=== PATIENT | male | born 1985 | race African-American/Black ===

== ENCOUNTER 2016-10-20 11:26 | Emergency (ER) | payer OTHER ==
[~2016-10-20] VITALS: Ht 172.7 cm; Wt 65.8 kg
[~2016-10-20 11:26] MED LIST: AMOXICILLIN500 MG ORAL; BENADRYL25 MG ORAL; BLEPH-105 ML OP; MOTRIN IB200 MG ORAL; NAPHCON-A EYE D15 ML RIGHT EYE; NKM
[2016-10-20 11:40] VITALS: BP 143/87
[2016-10-20] MEDS ORDERED: Albuterol ud Inhalation HHN ONE (11:45)
[2016-10-20] MEDS ORDERED: Ipratropium 0.02% Inh Soln 2.5ml UD HHN ONE (11:45)
--- NOTE | 2016-10-20 12:20 | Emergency Room Report ---
History of Present Illness General Chief Complaint: Upper Respiratory Illness Source: Patient Present Illness HPI Patient present with complaints of increased asthma exacerbation reports that he is out of his albuterol inhaler and is having difficulty catching his breath denies any fevers he has a low baseline cough Denies any production Denies any chest pain or pleurisy Denies any recent travel Denies any swelling His discomfort is rated as 5/10 Denies any other neck pain or photophobia Allergies: Coded Allergies: No Known Allergies (Unverified , 10/11/15) Patient History Past Medical History: see triage record Pertinent Family History: none Reviewed Nursing Documentation: PMH: Agreed, PSxH: Agreed Nursing Documentation-PMH Past Medical History: No History, Except For Hx Asthma: Yes Review of Systems All Other Systems: negative except mentioned in HPI Physical Exam Vital Signs Date Time Temp Pulse Resp B/P (MAP) Pulse Ox O2 Delivery O2 Flow Rate FiO2 10/20/16 11:30 98.1 97 18 142/92 94 Room Air 10/20/16 11:54 21 Sp02 EP Interpretation: reviewed, normal General Appearance: mild distress - appears mildly short of breath Head: normocephalic, atraumatic Eyes: bilateral eye PERRL, bilateral eye EOMI ENT: hearing grossly normal, normal pharynx, TMs + canals normal, uvula midline Neck: full range of motion, supple, no meningismus, no bony tend Respiratory: no rhonchi, no respiratory distress, no retraction, no accessory muscle use, wheezing - bilaterally Cardiovascular #1: normal peripheral pulses, regular rate, rhythm, no edema, no gallop, no JVD, no murmur Gastrointestinal: normal bowel sounds, non tender, soft, no mass, no organomegaly, non-distended, no guarding, no hernia, no pulsatile mass, no rebound Genitourinary: no CVA tenderness Musculoskeletal: normal inspection Neurologic: oriented x3, responsive, cut out machine operator III-XII nml as tested, motor strength/ tone normal, sensory intact Psychiatric: mood/affect normal Skin: normal color, no rash, warm/dry, palpation normal Lymphatic: normal inspection, no adenopathy Medical Decision Making Diagnostic Impression: Primary Impression: Acute asthma exacerbation ER Course Multiple differentials including but not limited to pneumonia, upper respiratory infection, asthma exacerbation entertained Patient lung sounds on reexamination are significantly improved and patient feels better as well At this time patient was written a prescription for his albuterol I will also place him on steroids for a few days and he requires close outpatient followup Rhythm Strip Diag. Results EP Interpretation: yes Rate: 78 Rhythm: NSR, no PVC's, no ectopy Last Vital Signs Date Time Temp Pulse Resp B/P (MAP) Pulse Ox O2 Delivery O2 Flow Rate FiO2 10/20/16 11:54 83 16 Room Air 10/20/16 11:54 98 21 10/20/16 11:40 143/87 10/20/16 11:30 98.1 Status: improved Disposition: HOME, SELF-CARE Condition: Improved Scripts Prednisone* (PREDNISONE*) 20 Mg Tablet 20 MG ORAL DAILY, #8 TAB Prov: NESTOR IRVING D.O. 10/20/16 Albuterol Sulfate* (ALBUTEROL SULFATE MDI*) 8.5 Gm Hfa.aer.ad 2 PUFF INH Q6H, #2 EA 0 Refills Prov: NESTOR IRVING D.O. 10/20/16 Referrals: [facility],REFERRING (PCP) Additional Instructions: Patient is provided with the discharge instructions notified to follow up with primary doctor in the next 2-3 days otherwise return to the er with any worsening symptoms. Please note that this report is being documented using [employer] technology. This can lead to erroneous entry secondary to incorrect interpretation by the dictating instrument. NESTOR IRVING D.O. Oct 20, 2016 12:20
[2016-10-20] MEDS ORDERED: PREDNISONE20 MG ORAL (13:02)
[2016-10-20] MEDS ORDERED: ALBUTEROL SULF8.5 GM INH (13:02)
[2016-10-20 13:15] VITALS: BP 116/68
== END 2016-10-20 13:43 | disposition home or self-care (01) ==
LOC: EMR 11:42
DX: J45.901 Unspecified asthma with (acute) exacerbation (principal)
CPT/HCPCS: 94640; 94664; 99284

== ENCOUNTER 2017-02-14 21:32 | Emergency (ER) | payer OTHER ==
[~2017-02-14] VITALS: Ht 172.7 cm; Wt 67.1 kg
[~2017-02-14 21:32] MED LIST changes: +ALBUTEROL SULF8.5 GM INH; +PREDNISONE20 MG ORAL
[2017-02-14 22:00] VITALS: BP 130/76
[2017-02-14] MEDS ORDERED: Ipratropium 0.02% Inh Soln 2.5ml UD HHN ONE (22:00)
[2017-02-14] MEDS ORDERED: Albuterol ud Inhalation HHN ONE (22:00)
[2017-02-14] MEDS ORDERED: COMPACT COMPRE1 EACH MC (22:02)
[2017-02-14] MEDS ORDERED: ALBUTEROL2.5 MG/3 M HHN (22:02)
--- NOTE | 2017-02-14 22:16 | Emergency Room Report ---
History of Present Illness General Chief Complaint: Asthma Source: Patient Present Illness HPI 31-year-old male with history of asthma, p/w SOB for 2 days. SOB occurs both at rest and on exertion. no cough. Denies chest pain. Patient has been using albuterol inhaler every 8 hours. Patient does not have nebulizer at home. No recent steroid use. Pt states that this episode is similar to other episodes of asthma exacerbation. Denies fever, chills. Denies sick contacts or recent travel. Patient denies history of ICU admissions, intubations, or usage of BIPAP for asthma. Allergies: Coded Allergies: No Known Allergies (Unverified , 10/11/15) Patient History Past Medical History: see triage record Past Surgical History: none Pertinent Family History: none Reviewed Nursing Documentation: PMH: Agreed, PSxH: Agreed Nursing Documentation-PMH Hx Asthma: Yes Review of Systems All Other Systems: negative except mentioned in HPI Physical Exam Vital Signs Date Time Temp Pulse Resp B/P (MAP) Pulse Ox O2 Delivery O2 Flow Rate FiO2 02/14/17 21:45 98.4 75 16 130/76 98 Room Air 02/14/17 22:13 21 Sp02 EP Interpretation: reviewed, normal General Appearance: normal inspection, well appearing, no apparent distress, alert, GCS 15, non-toxic, other - not in resp distress Head: normocephalic, atraumatic Eyes: bilateral eye normal inspection, bilateral eye PERRL, bilateral eye EOMI ENT: normal ENT inspection, normal pharynx, normal voice, moist mucus membranes Neck: normal inspection, full range of motion, supple Respiratory: no respiratory distress, no retraction, speaking full sentences, other - very minimal exp wheezing, chest symmetrical Cardiovascular #1: normal inspection, regular rate, rhythm, normal capillary refill Cardiovascular #2: 2+ radial (R), 2+ radial (L) Gastrointestinal: normal inspection, non tender, soft, non-distended, no guarding Genitourinary: no CVA tenderness Musculoskeletal: normal inspection, back normal, normal range of motion, non- tender Neurologic: normal inspection, alert, oriented x3, responsive, motor strength/ tone normal, sensory intact, normal gait, speech normal Psychiatric: normal inspection, judgement/insight normal, memory normal Skin: normal inspection, normal color, no rash, warm/dry, well hydrated, normal turgor Medical Decision Making Diagnostic Impression: Primary Impression: Asthma ER Course 31-year-old male with history of asthma p/w SOB DDX: Asthma exacerbation, upper respiratory infection/viral syndrome Plan: Combivent nebulizer treatment x 1 Patient with extremely minimal wheezing, we'll give Decadron x1 ER Course: Patient has been treated with combivent x 3, antibiotics. Patient states improvement of symptoms. Patient continues to speak in complete sentences and is not in respiratory distress. No wheezing Disposition: Patient will be discharged to home with albuterol nebulizer Strict precautions are discussed with patient on when to emergently return to the ED including: persistent or worsening SOB, chest pain, fever, chills, which could indicate severe illness. Patient verbalized understanding. Patient is to follow up with her/his PMD within 5 days. Patient agrees with plan. Please note that this Emergency Department Report was dictated using [employer]comreinforcing bar setter technology software, occasionally this can lead to erroneous entry secondary to interpretation by the dictation equipment. Last Vital Signs Date Time Temp Pulse Resp B/P (MAP) Pulse Ox O2 Delivery O2 Flow Rate FiO2 02/14/17 22:13 21 02/14/17 22:13 75 16 98 Room Air 02/14/17 21:45 98.4 130/76 Disposition: HOME, SELF-CARE Condition: Improved Scripts Albuterol Sulfate* (ALBUTEROL SULFATE HHN*) 2.5 Mg/3 Ml Vial.neb 2.5 MG HHN Q4H Y for Shortness of Breath, #25 VIAL 0 Refills Prov: Grace Ferguson M.D. 02/14/17 Nebulizer (Compact Compressor Nebulizer) 1 Each Each [facility], #1 0 Refills Prov: Grace Ferguson M.D. 02/14/17 Patient Instructions: Asthma, Adult Grace Ferguson M.D. Feb 14, 2017 22:16
[2017-02-14 22:30] VITALS: BP 130/76
[2017-02-14] MEDS ORDERED: Dexamethasone 4mg/ml vial IM ONE (22:30)
== END 2017-02-14 22:30 | disposition home or self-care (01) ==
LOC: EMR 22:04
DX: J45.909 Unspecified asthma, uncomplicated (principal)
CPT/HCPCS: 94640; 94664; 96372; 99283; J1100

== ENCOUNTER 2018-01-25 13:38 | Emergency (ER) | payer OTHER ==
[~2018-01-25] VITALS: Ht 172.7 cm; Wt 85.3 kg
[~2018-01-25 13:38] MED LIST changes: +ALBUTEROL2.5 MG/3 M HHN; +COMPACT COMPRE1 EACH MC
[2018-01-25] MEDS ORDERED: Albuterol/Ipratropium 3ml neb HHN ONE (14:15)
--- NOTE | 2018-01-25 14:18 | Emergency Room Report ---
History of Present Illness General Chief Complaint: Flu Like Symptoms Source: Patient Present Illness HPI 32-year-old male patient presents the ER complaining of flulike symptoms and asthma for the past 2 days. Patient reports difficulty breathing. Denies cough. Reports history of asthma, states this been using his inhaler without relief of symptoms. Reports stuffy nose and nasal congestion during this time. Reports breathing symptoms worse at night. Denies fever, chest pain. Denies abdominal pain. Denies vomiting. Reports generalized body aches, denies dysuria , hematuria. Denies diarrhea. Allergies: Coded Allergies: No Known Allergies (Unverified , 01/25/18) Patient History Past Medical History: see triage record Reviewed Nursing Documentation: PMH: Agreed; PSxH: Agreed Nursing Documentation-PMH Past Medical History: No History, Except For Hx Asthma: Yes Review of Systems All Other Systems: negative except mentioned in HPI Physical Exam Vital Signs Date Time Temp Pulse Resp B/P (MAP) Pulse Ox O2 Delivery O2 Flow Rate FiO2 01/25/18 13:46 99.1 94 16 118/82 94 Room Air Sp02 EP Interpretation: reviewed, normal General Appearance: well appearing, no apparent distress, alert, GCS 15, non- toxic Head: normocephalic, atraumatic Eyes: bilateral eye normal inspection, bilateral eye PERRL ENT: hearing grossly normal, normal pharynx, no angioedema, normal voice, TMs + canals normal, uvula midline, moist mucus membranes, nasal congestion Neck: full range of motion Respiratory: lungs clear, no rhonchi, no respiratory distress, no accessory muscle use, speaking full sentences, wheezing Cardiovascular #1: regular rate, rhythm, no edema Cardiovascular #2: 2+ radial (R), 2+ radial (L) Musculoskeletal: back normal, digits/nails normal, gait/station normal, normal range of motion, non-tender Neurologic: alert, oriented x3, responsive, motor strength/tone normal, sensory intact Psychiatric: mood/affect normal Medical Decision Making PA Attestation Dr. Ruff is my supervising Physician whom patient management has been discussed with. Diagnostic Impression: Primary Impression: Acute asthma exacerbation Additional Impression: Influenza-like illness ER Course Pt presents to ED c/o asthma symptoms. DDX considered but are not limited to asthma, viral URI, influenza, bronchitis, pneumonia. No rhonchi or rales, patient afebrile, low suspicion for pneumonia at this time , does not require x-rays or imaging. VITAL SIGNS are WNL, patient is afebrile. Ordered breathing treatment and medication. ER COURSE Patient provided with prednisone Duoneb breathing treatment provided. Following treatment patient states no longer having difficulty with breathing, lung sounds improved. Patient is resting comfortably in no acute distress. Chest x-ray shows no acute disease, no consolidations, no crackles on auscultation, low suspicion for pneumonia, does not require antibiotics at this time. Will provide patient with medication for symptomatic relief. Provide patient with Tamiflu due to flulike symptoms for 2 days. cap refill less than 2 seconds, moist mucous membranes, normal skin turgor, low suspicion for dehydration. ER precautions given. Drink plenty fluids. DISCHARGE: -Rx given for Prednisone. First dose provided in the ER, Rx provided, begin taking tomorrow. -Rx provided for Albuterol MDI. -Rx provided for Sudafed Rx provided for Tamiflu Rx provided for Flonase At this time pt is stable for d/c to home. Patient is resting comfortably in no acute distress, nontoxic appearing, able to answer questions without difficulty. Patient to take medications as instructed Will provide with patient care instructions and any necessary prescriptions. Care plan and follow-up instructions provided. Patient instructed to follow-up with primary care provider in 3 - 5 days. Patient questions asked and answered. Patient reports understanding and agreement to treatment plan. ER precautions given. Patient instructed to return to ER immediately for any new or worsening of symptoms including but not limited to increasing SOB, persistent fever. - Please note that this Emergency Department Report was dictated using [employer]boothhybrid tester technology software, occasionally this can lead to erroneous entry secondary to interpretation by the dictation equipment. Chest X-Ray Diagnostic Results Chest X-Ray Diagnostic Results : Chest X-Ray Ordered: Yes # of Views/Limited/Complete: 1 View Indication: Chest Pain EP Interpretation: Yes MAYA Xray: Interpretation reviewed, by supervising MD, and agrees with findings. Interpretation: no consolidation, no effusion, no pneumothorax, no acute cardiopulmonary disease Impression: No acute disease MAYA Mcfarland PA-C Last Vital Signs Date Time Temp Pulse Resp B/P (MAP) Pulse Ox O2 Delivery O2 Flow Rate FiO2 01/25/18 13:58 94 16 Room Air 01/25/18 13:46 99.1 118/82 94 Status: improved Disposition: HOME, SELF-CARE Condition: Stable Scripts D-Methorphan/PE/Acetaminophen (Sudafed PE Pressure+Pain+Cough) 1 Each Tablet 1 EACH PO BID, #24 TAB Prov: Xavier Mcfarland 01/25/18 Oseltamivir Phosphate (Tamiflu) 75 Mg Capsule 75 MG ORAL TWICE A DAY for 5 Days, #10 CAP Prov: Xavier Mcfarland 01/25/18 Albuterol Sulfate* (ALBUTEROL SULFATE MDI*) 8.5 Gm Hfa.aer.ad 2 PUFF INH Q4H, #1 INH 0 Refills Prov: Xavier Mcfarland 01/25/18 Prednisone* (PREDNISONE*) 20 Mg Tablet 40 MG ORAL DAILY for 4 Days, #8 TAB Prov: Xavier Mcfarland 01/25/18 Fluticasone Propionate (Flonase Allergy Relief) 9.9 Ml [place].susp 9.9 ML NS BID, #9.9 ML Prov: Xavier Mcfarland 01/25/18 Patient Instructions: Asthma Attack Prevention, Asthma, Adult, [id number], Influenza, Adult, [id number] Additional Instructions: Followup with primary care provider in 3 -5 days. Take medications as directed. Patient questions asked and answered. ER precautions given, patient instructed to return to ER immediately for any new or worsening of symptoms. Xavier Mcfarland Jan 25, 2018 14:18
--- NOTE | 2018-01-25 14:49 | Diagnostic Imaging Report ---
Indication: Chest pain Technique: XRAY Chest 1v Comparison: None Findings: Heart size and mediastinal contours are within normal limits for AP technique. There is no focal consolidation, pneumothorax or pleural effusion. Is mild scoliosis. Osseous structures demonstrate no acute abnormality. Impression: No radiographic evidence of acute cardiopulmonary disease.
[2018-01-25] MEDS ORDERED: SUDAFED PE PRE1 EACH PO (15:05)
[2018-01-25] MEDS ORDERED: TAMIFLU75 MG ORAL (15:05)
[2018-01-25] MEDS ORDERED: PREDNISONE20 MG ORAL (15:05)
[2018-01-25] MEDS ORDERED: FLONASE ALLERG9.9 ML NS (15:05)
[2018-01-25] MEDS ORDERED: ALBUTEROL SULF8.5 GM INH (15:05)
[2018-01-25 15:14] VITALS: BP 121/79
[2018-01-25 15:15] VITALS: BP 121/79
== END 2018-01-25 15:15 | disposition home or self-care (01) ==
LOC: EMR 14:23
DX: J45.901 Unspecified asthma with (acute) exacerbation (principal); J11.1 Influenza due to unidentified influenza virus with other respiratory manifestations
CPT/HCPCS: 71045; 94640; 94664; 99284; J7512; J7620

== ENCOUNTER 2018-10-28 06:04 | Emergency (ER) | payer OTHER ==
[~2018-10-28] VITALS: Ht 172.7 cm; Wt 52.2 kg
[~2018-10-28 06:04] MED LIST changes: +FLONASE ALLERG9.9 ML NS; +SUDAFED PE PRE1 EACH PO; +TAMIFLU75 MG ORAL
[2018-10-28 06:05] VITALS: BP 142/88
--- NOTE | 2018-10-28 06:05 | NUR ---
ED Nurse Note: pt ambulated to ed c/o asthma attack x 2 days. pt is coughing with audible wheezes. pt states he uses albuterol sulfate but he ran out
[2018-10-28] MEDS ORDERED: Albuterol ud Inhalation HHN ONE (06:15)
[2018-10-28] MEDS ORDERED: Ipratropium 0.02% Inh Soln 2.5ml UD HHN ONE (06:15)
--- NOTE | 2018-10-28 06:21 | NUR ---
ED Nurse Note: RT AT BEDSIDE
[2018-10-28] MEDS ORDERED: ALBUTEROL SULF8.5 GM INH (06:54)
[2018-10-28] MEDS ORDERED: BREO ELLIPTA 21 EACH IH (06:54)
--- NOTE | 2018-10-28 06:54 | Emergency Room Report ---
History of Present Illness General Chief Complaint: Asthma Source: Patient Present Illness [facility] This is a 33-year-old male with history of asthma. Presents with asthma exacerbation. Onset for last 2 days. Worse today. He is out of his inhaler. Inhaler last him only 2 to 4 weeks. Not on a steroid inhaler. Decreased smoking. No nausea no vomiting. Worse with inspiration. Worse with coughing. Better with rest. Allergies: Coded Allergies: No Known Allergies (Unverified , 01/25/18) Patient History Past Medical History: see triage record, old chart reviewed, asthma Past Surgical History: none Pertinent Family History: none Social History: Reports: smoking Immunizations: other Reviewed Nursing Documentation: PMH: Agreed; PSxH: Agreed Nursing Documentation-PMH Past Medical History: No History, Except For Hx Asthma: Yes Review of Systems Eye: Denies: eye pain, blurred vision ENT: Denies: ear pain, nose congestion, throat swelling Respiratory: Reports: shortness of breath, wheezing; Denies: cough Cardiovascular: Denies: chest pain, palpitations Gastrointestinal: Denies: abdominal pain, diarrhea, nausea, vomiting Musculoskeletal: Denies: back pain, joint pain Skin: Denies: rash Neurological: Denies: headache, numbness Endocrine: Denies: increased thirst, increased urine Hematologic/Lymphatic: Denies: easy bruising All Other Systems: negative except mentioned in HPI Physical Exam Vital Signs Date Time Temp Pulse Resp B/P (MAP) Pulse Ox O2 Delivery O2 Flow Rate FiO2 10/28/18 06:05 92 16 Room Air 10/28/18 06:05 97.9 142/88 96 10/28/18 06:25 21 vitals normal Sp02 EP Interpretation: reviewed, normal General Appearance: well appearing, no apparent distress, alert Head: normocephalic, atraumatic Eyes: bilateral eye PERRL, bilateral eye EOMI ENT: hearing grossly normal, normal pharynx Neck: full range of motion, supple, no meningismus Respiratory: chest non-tender, respiratory distress, decreased breath sounds, accessory muscle use, wheezing Cardiovascular #1: regular rate, rhythm, no murmur Gastrointestinal: normal bowel sounds, non tender, no mass, no organomegaly, no bruit, non-distended Musculoskeletal: back normal, gait/station normal, normal range of motion Psychiatric: mood/affect normal Medical Decision Making Diagnostic Impression: Primary Impression: Asthma attack Qualified Codes: J45.31 - Mild persistent asthma with (acute) exacerbation ER Course Presents with asthma exacerbation. Wheezing resolved after treatment. He felt much better now. Will discharge home. Last Vital Signs Date Time Temp Pulse Resp B/P (MAP) Pulse Ox O2 Delivery O2 Flow Rate FiO2 10/28/18 06:26 88 24 97 Room Air 21 98 24 95 10/28/18 06:05 97.9 142/88 (106) Status: improved Disposition: HOME, SELF-CARE Condition: Stable Scripts Fluticasone/Vilanterol (Breo Ellipta 200-25 Mcg INH) 1 Each Blst.w.dev 1 EACH IH BID, #1 UNIT Prov: Danny Low MD 10/28/18 Albuterol Sulfate* (ALBUTEROL SULFATE MDI*) 8.5 Gm Hfa.aer.ad 2 PUFF INH Q4H PRN for cough/wheezing, #1 EA 0 Refills Prov: Danny Low MD 10/28/18 Patient Instructions: Asthma, Adult Additional Instructions: Smoking. Follow-up with your doctor in 7 days. Return if symptoms worsen. Danny Low MD Oct 28, 2018 06:54
[2018-10-28 06:57] VITALS: BP 136/87
--- NOTE | 2018-10-28 06:58 | NUR ---
ER DISCHARGE NOTE: Patient is cleared to be discharged per ERMD, pt is aox4, on room air, with stable vital signs. pt was given dc and prescription instructions, pt was able to verbalize understanding, pt id band removed. pt is able to ambulate with steady gait. pt took all belongings.
== END 2018-10-28 07:10 | disposition home or self-care (01) ==
LOC: EMR 07:10
DX: J45.31 Mild persistent asthma with (acute) exacerbation (principal); F17.200 Nicotine dependence, unspecified, uncomplicated
CPT/HCPCS: 94640; 94664; J7512; Z7502; 99284

== ENCOUNTER 2020-05-02 21:04 | Emergency (ER) | payer OTHER ==
[~2020-05-02] VITALS: Ht 172.7 cm; Wt 64.4 kg
[~2020-05-02 21:04] MED LIST changes: +BREO ELLIPTA 21 EACH IH
[2020-05-02] MEDS ORDERED: Omnipaque 350 100ml vial INJ PRN (21:15)
[2020-05-02] MEDS ORDERED: Ipratropium 0.02% Inh Soln 2.5ml UD HHN ONE (21:15)
[2020-05-02] MEDS ORDERED: Albuterol ud Inhalation HHN ONE (21:15)
--- NOTE | 2020-05-02 21:17 | Emergency Room Report ---
History of Present Illness General Chief Complaint: Upper Respiratory Illness Source: Patient Present Illness HPI This is a 34-year-old male with a history of asthma. He presents with chief plaint of shortness of breath and hemoptysis. He said he had a bad cold 2 days ago. He was wheezing. It got better with his inhaler. His coughing has been productive of sputum. Today he had hemoptysis with his coughing. He showed me the video that he took. It was about a quarter size hemoptysis that he had twice. He denies any fever chills. Worse with inspiration. Better with rest. He had Covid testing in late February or early March and it was negative. No chest pain. No calf tenderness. Allergies: Coded Allergies: No Known Allergies (Unverified , 01/25/18) COVID-19 Screening Contact w/high risk pt: No Experienced COVID-19 symptoms?: No COVID-19 Testing performed [facility] [place]: No COVID-19 Screening: Negative COVID-19 Patient History Past Medical History: see triage record, old chart reviewed, asthma Past Surgical History: none Pertinent Family History: none Social History: Denies: smoking Immunizations: other Reviewed Nursing Documentation: PMH: Agreed; PSxH: Agreed Nursing Documentation-PMH Hx Asthma: Yes Review of Systems Eye: Denies: eye pain, blurred vision ENT: Denies: ear pain, nose congestion, throat swelling Respiratory: Reports: cough, shortness of breath, sputum Cardiovascular: Denies: chest pain, palpitations Gastrointestinal: Denies: abdominal pain, diarrhea, nausea, vomiting Musculoskeletal: Denies: back pain, joint pain Skin: Denies: rash Neurological: Denies: headache, numbness Endocrine: Denies: increased thirst, increased urine Hematologic/Lymphatic: Denies: easy bruising All Other Systems: negative except mentioned in HPI Physical Exam Vital Signs Date Time Temp Pulse Resp B/P (MAP) Pulse Ox O2 Delivery O2 Flow Rate FiO2 05/02/20 21:10 98.1 73 18 129/89 (102) 98 Vitals normal Sp02 EP Interpretation: reviewed, normal General Appearance: well appearing, no apparent distress, alert Head: normocephalic, atraumatic Eyes: bilateral eye PERRL, bilateral eye EOMI ENT: hearing grossly normal, normal pharynx Neck: full range of motion, supple, no meningismus Respiratory: chest non-tender, wheezing Cardiovascular #1: regular rate, rhythm, no murmur Gastrointestinal: normal bowel sounds, non tender, no mass, no organomegaly, no bruit, non-distended Musculoskeletal: back normal, normal range of motion, gait/station normal Psychiatric: mood/affect normal Medical Decision Making Diagnostic Impression: Primary Impression: Community acquired pneumonia Qualified Codes: J18.9 - Pneumonia, unspecified organism Additional Impressions: Rash Cough with hemoptysis Asthma exacerbation Qualified Codes: J45.21 - Mild intermittent asthma with (acute) exacerbation ER Course Patient presents with cough with hemoptysis. Also has wheezing. Wheezing is better after breathing treatment. CT scan showed multifocal pneumonitis. No evidence of PE or dissection. His Covid testing is negative. There is no respiratory distress and vital signs are stable. Will discharge home. Patient also has a rash on his back that has been there for several months. Physical exam show hypopigmentation and scaly rash. CT/MRI/US Diagnostic Results CT/MRI/US Diagnostic Results : Imaging Test Ordered: CT chest Impression Read by radiologist. Multifocal pneumonitis. Negative for PE. Last Vital Signs Date Time Temp Pulse Resp B/P (MAP) Pulse Ox O2 Delivery O2 Flow Rate FiO2 05/02/20 21:10 98.1 73 18 129/89 (102) 98 Status: improved Disposition: HOME, SELF-CARE Condition: Stable Scripts Hydrocortisone/Aloe (Hydrocortisone/Aloe 1% Cream*) Y Cr 1 APPLIC TOPIC Q6H PRN for Itching, #30 GM Prov: Danny Low MD 05/02/20 Azithromycin* (ZITHROMAX*) 250 Mg Tablet 250 MG ORAL DAILY, #6 TAB 0 Refills Take two tables once daily for 1 day, then one tablet once daily for 4 days. Prov: Danny Low MD 05/02/20 Amoxicillin* (AMOXIL*) 500 Mg Capsule 1000 MG ORAL THREE TIMES A DAY for 5 Days, CAP Prov: Danny Low MD 05/02/20 Prednisone* (PREDNISONE*) 20 Mg Tablet 40 MG ORAL DAILY, #8 TAB Prov: Danny Low MD 05/02/20 Referrals: NOT CHOSEN [facility]/,REFERRING (PCP) Additional Instructions: Follow-up with your doctor in 7 days. Return if symptoms worsen. Danny Low MD May 02, 2020 21:17
[2020-05-02 21:29] VITALS: BP 126/77
--- NOTE | 2020-05-02 21:31 | NUR ---
ED Nurse Note: walked in due to blood in cough. per pt, he has been coughing for 3-4 days. pt had covid test in 03/29 and came out negative. denied fever, chest pain, chills. runny nose and cough noted. pt denied to be contacted with covid positive patient. no other acute distress noted.
[2020-05-02 21:50] LABS: ANION GAP 8 mmol/L (5-15); BLOOD UREA NITROGEN 21 mg/dL (7-18); CALCIUM 9.5 MG/DL (8.5-10.1); CARBON DIOXIDE 29 MMOL/L (21-32); CHLORIDE 102 MMOL/L (98-107); CREATININE 1.3 MG/DL (0.55-1.30); POTASSIUM 3.8 MMOL/L (3.5-5.1); SODIUM 139 MMOL/L (136-145)
[2020-05-02 21:54] LABS: BASOPHILS % (AUTO) 1.9 % (0.0-2.0); EOSINOPHILS % (AUTO) 4.6 % (0.0-3.0); HEMATOCRIT 41.8 % (42.0-52.0); HEMOGLOBIN 14.4 G/DL (14.2-18.0); LYMPHOCYTES % (AUTO) 38.7 % (20.0-45.0); MEAN CORPUSCULAR VOLUME 90 FL (80-99); MONOCYTES % (AUTO) 6.5 % (1.0-10.0); NEUTROPHILS % (AUTO) 48.3 % (45.0-75.0); PLATELET COUNT 261 K/UL (150-450); RED BLOOD COUNT 4.64 M/UL (4.70-6.10); WHITE BLOOD COUNT 6.6 K/UL (4.8-10.8)
--- NOTE | 2020-05-02 22:05 | NUR ---
ED Nurse Note: pt taken to CT in stable condition.
--- NOTE | 2020-05-02 22:54 | Diagnostic Imaging Report ---
EXAM: CT Angiography Chest With Intravenous Contrast CLINICAL HISTORY: BLD TECHNIQUE: Axial computed tomographic angiography images of the chest with intravenous contrast. CTDI is 64.4 mGy and DLP is 157.3 mGy-cm. One or more of the following dose reduction techniques were used: automated exposure control, adjustment of the mA and/or kV according to patient size, use of iterative reconstruction technique. MIP reconstructed images were created and reviewed. COMPARISON: None. FINDINGS: Pulmonary arteries: Normal enhancement of the vascular structures with no filling defect to suggest pulmonary embolus or aortic dissection. Aorta: No acute findings. No thoracic aortic aneurysm. Lungs: Multiple scattered groundglass opacities within the bilateral lung hagen consistent with multifocal pneumonitis. Pleural space: No pleural effusion or pneumothorax. Heart: Unremarkable. No cardiomegaly. No significant pericardial effusion. No evidence of RV dysfunction. Bones/joints: No acute fracture. No dislocation. Soft tissues: Unremarkable. Lymph nodes: Unremarkable. No enlarged lymph nodes. IMPRESSION: 1. Multifocal pneumonitis. 2. No pulmonary embolus or aortic dissection.
[2020-05-02] MEDS ORDERED: ZITHROMAX250 MG ORAL (23:20)
[2020-05-02] MEDS ORDERED: AMOXICILLIN500 MG ORAL (23:20)
[2020-05-02] MEDS ORDERED: PREDNISONE20 MG ORAL (23:20)
[2020-05-02] MEDS ORDERED: HYDROCORTISONE-30 GM TOPIC (23:21)
[2020-05-02] MEDS ORDERED: cefTRIAXone 1 GM in NS 55 ML IVPB ONE (23:30)
[2020-05-02 23:59] VITALS: BP 126/77
--- NOTE | 2020-05-03 00:01 | NUR ---
ED Nurse Note: Pt cleared by health care Provider for discharge. DC instructions/prescription was given and explained to pt and verbalized understanding of teachings. All medical deviecs such as ID band removed. Pt is AAO x4, ambulatory and left with all personal belongings.
== END 2020-05-03 00:01 | disposition home or self-care (01) ==
LOC: EMR 21:15
DX: J18.9 Pneumonia, unspecified organism (principal); R21 Rash and other nonspecific skin eruption; R05 Cough; R04.2 Hemoptysis; J45.21 Mild intermittent asthma with (acute) exacerbation
CPT/HCPCS: 36415; 71275; 80048; 85025; 94640; 96365; J0696; J7512; Q9967; Z7502; 99284